=== PATIENT | male | born 1955 | race Caucasian/White ===

== ENCOUNTER 2016-11-14 11:09 | Emergency (ER) | payer OTHER ==
--- NOTE | 2016-11-14 11:18 | EDPHY ---
H & P Time Seen by Provider: 11/14/16 11:17 HPI/ROS: CHIEF COMPLAINT: Intermittent chest pain HISTORY OF PRESENT ILLNESS: The patient presents to the ED for evaluation of intermittent chest pain which has been occurring for the past 2 days. The patient's symptoms occur sporadically and are not precipitated by exertion. He describes a vague substernal discomfort and some sensation of fullness in his throat. The patient did have some paresthesias in his left arm which also improved. The patient was concerned that he was having heart attack which prompted his visit to the ED today. The patient has a history of borderline hypertension which is untreated. The patient denies hyperlipidemia, diabetes, smoking or a positive family medical history. The patient states his last episode of pain began at approximately 8 o'clock this morning. It is essentially resolved. He currently denies any paresthesias involving his left arm. Additionally, the patient denies pleuritic chest pain. He denies asymmetric calf pain or swelling. He has no complaints of fever cough or congestion. REVIEW OF SYSTEMS: A comprehensive 10 point review of systems is otherwise negative aside from elements mentioned in the history of present illness. Source: Patient Exam Limitations: No limitations - Medical/Surgical History PMH: Past medical history: Borderline hypertension - Family History Significant Family History: No pertinent family hx - Social History Smoking Status: Never smoked - Physical Exam Exam: General Appearance: Alert, no distress Eyes: Pupils equal and round no pallor or injection ENT, Mouth: Mucous membranes moist Respiratory: There are no retractions, lungs are clear to auscultation Cardiovascular: Regular rate and rhythm Gastrointestinal: Abdomen is soft and nontender, no masses, bowel sounds normal Neurological: A&O, normal motor function, normal sensory exam, normal cranial nerves Skin: Warm and dry, no rashes Musculoskeletal: Neck is supple nontender Extremities: symmetrical, full range of motion Constitutional: Initial Vital Signs Temperature (C) 36.7 C 11/14/16 11:11 Heart Rate 68 11/14/16 11:11 Respiratory Rate 16 11/14/16 11:11 Blood Pressure 147/104 H 11/14/16 11:11 O2 Sat (%) 97 11/14/16 11:11 O2 Delivery Mode Room Air Allergies/Adverse Reactions: amoxicillin Allergy (Verified 11/14/16 11:22) Home Medications: Medication Instructions Recorded Aspirin EC 81 mg (*) 11/14/16 Multi-Day Vitamins 11/14/16 Medical Decision Making - Diagnostics EKG Interpretation: EKG: Complete interpretation has been separately recorded in the [facility] archive. Summary impression: Sinus rhythm, no ischemic changes Imaging Results: Imaging Impressions Chest X-Ray 11/14/16 11:41 Impression: Negative portable chest ED Course/Re-evaluation: The patient presents to the ED with a 2 day history of atypical chest pain. The patient is currently asymptomatic. His initial EKG is normal. His vital signs and neurologic examination are also within normal limits. The patient is troponin is normal despite 2 days of symptoms. He remained asymptomatic throughout his stay in the emergency department. The patient is low risk for acute coronary syndrome and has no risk factors aside from a reported history of intermittent mild hypertension. Additionally, the patient has no history of exertional chest pain or shortness of breath. There is nothing on his history or physical examination today to suggest pulmonary embolism or DVT. I have told the patient that further workup is indicated with a treadmill stress test. The patient will follow up with Dr. Lorin Shelton from Cardiology. They will contact the patient later today to give him a follow-up appointment for a treadmill stress test. The patient has been instructed that he should return to the ED immediately for worsening chest pain, difficulty breathing or other concerns. Differential Diagnosis: Differential diagnosis considered includes acute coronary syndrome, esophageal spasm, pericarditis, aortic dissection, pulmonary embolism - Data Points Laboratory Results: Laboratory Results 11/14/16 11:15 11/14/16 11:15 11/14/16 11/14/16 11:15 11:15 WBC 4.32 10^3/uL 10^3/uL (3.80-9.50) RBC 4.56 10^6/uL 10^6/uL (4.40-6.38) Hgb 15.3 g/dL g/dL (13.7-17.5) Hct 41.8 % % (40.0-51.0) MCV 91.7 fL fL (81.5-99.8) MCH 33.6 pg pg (27.9-34.1) MCHC 36.6 g/dL g/dL (32.4-36.7) RDW 12.4 % % (11.5-15.2) Plt Count 124 10^3/uL L 10^3/uL (150-400) MPV 10.1 fL fL (8.7-11.7) Neut % (Auto) 54.1 % % (39.3-74.2) Lymph % (Auto) 33.8 % % (15.0-45.0) [place] % (Auto) 10.9 % % (4.5-13.0) Eos % (Auto) 0.5 % L % (0.6-7.6) Baso % (Auto) 0.5 % % (0.3-1.7) Nucleat RBC Rel Count 0.0 % % (0.0-0.2) Absolute Neuts (auto) 2.34 10^3/uL 10^3/uL (1.70-6.50) Absolute Lymphs (auto) 1.46 10^3/uL 10^3/uL (1.00-3.00) Absolute Monos (auto) 0.47 10^3/uL 10^3/uL (0.30-0.80) Absolute Eos (auto) 0.02 10^3/uL L 10^3/uL (0.03-0.40) Absolute Basos (auto) 0.02 10^3/uL 10^3/uL (0.02-0.10) Absolute Nucleated RBC 0.00 10^3/uL 10^3/uL (0-0.01) Immature Gran % 0.2 % % (0.0-1.1) Immature Gran # 0.01 10^3/uL 10^3/uL (0.00-0.10) Sodium 137 mEq/L mEq/L (134-144) Potassium 3.8 mEq/L mEq/L (3.5-5.2) Chloride 100 mEq/L mEq/L (97-110) Carbon Dioxide 25 mEq/l mEq/l (22-31) Anion Gap 12 mEq/L mEq/L (8-16) BUN 10 mg/dL mg/dL (7-23) Creatinine 0.7 mg/dL mg/dL (0.7-1.3) Estimated GFR > 60 Glucose 104 mg/dL H mg/dL (70-100) Calcium 8.9 mg/dL mg/dL (8.5-10.4) Troponin I < 0.012 ng/mL ng/mL (0-0.034) Departure - Departure Disposition: Home, Routine, Self-Care Clinical Impression: Chest pain Condition: Good Instructions: Chest Pain (ED) Additional Instructions: 1. Based upon the testing done in the Emergency Department today we see no evidence of a heart attack. 2. We are unable to fully exclude coronary artery disease based upon the testing available in the Emergency Department. 3. For this reason, we would like you to be seen by cardiology for consideration of additional testing within the next 3 days. 4. Please contact the director business intelligence you have been referred to schedule this appointment as soon as possible. Their offices are typically open from 8:30am- 5pm M-F. 5. Please return to the Emergency Department immediately for any recurrent chest pain, difficulty breathing or other concerns. Referrals: Lorin Shelton MD [Medical Doctor] - As per Instructions
[2016-11-14 11:35] LABS: % IMMATURE GRANULYOCYTES 0.2 % (0.0-1.1); ABSOLUTE IMMATURE GRANULOCYTES 0.01 10^3/uL (0.00-0.10); ADD DIFF? NO; ADD MORPH? NO; ADD SCAN? NO; ATYPICAL LYMPHOCYTE FLAG 30 (0-99); FRAGMENT RBC FLAG 0 (0-99); HEMATOCRIT 41.8 % (40.0-51.0); HEMOGLOBIN 15.3 g/dL (13.7-17.5); LEFT SHIFT FLG 0 (0-99); LIPEMIA HEMOLYSIS FLAG 90 (0-99); MEAN CELL HEMOGLOBIN 33.6 pg (27.9-34.1); MEAN CELL HEMOGLOBIN CONCENTR. 36.6 g/dL (32.4-36.7); MEAN CELL VOLUME 91.7 fL (81.5-99.8); MEAN PLATELET VOLUME 10.1 fL (8.7-11.7); PLATELET CLUMPS FLAG 0 (0-99); PLATELET COUNT 124 10^3/uL (150-400); RED BLOOD CELL COUNT 4.56 10^6/uL (4.40-6.38); RED CELL DISTRIBUTION WIDTH 12.4 % (11.5-15.2)
[2016-11-14 11:49] LABS: ANION GAP 12 mEq/L (8-16); CALCIUM 8.9 mg/dL (8.5-10.4); CARBON DIOXIDE 25 mEq/l (22-31); CHLORIDE 100 mEq/L (97-110); CREATININE 0.7 mg/dL (0.7-1.3); GLOMERULAR FILTRATION RATE > 60; GLUCOSE 104 mg/dL (70-100); POTASSIUM 3.8 mEq/L (3.5-5.2); SODIUM 137 mEq/L (134-144)
[2016-11-14 12:00] LABS: TROPONIN I < 0.012 ng/mL (0-0.034)
--- NOTE | 2016-11-14 12:29 | CPEKG ---
Heart Rate: 67 RR Interval: 896 P-R Interval: 164 QRSD Interval: 94 QT Interval: 408 QTC Interval: 431 P [place]: 48 QRS [place]: -10 T Wave [place]: 4 EKG Severity - ABNORMAL ECG - EKG Impression: SINUS RHYTHM EKG Impression: LEFTWARD AXIS EKG Impression: ST ABNORMALITY SUGGESTIVE OF ISCHEMIA Electronically Signed By: Don Loera 15-Nov-2016 14:32:44
[2016-11-14 13:07] VITALS: BP 126/88; PULSE 64; RESP 14; TEMP 97.7; O2SAT 95
== END 2016-11-14 13:07 | disposition home or self-care (01) ==
LOC: CED 11:09
DX: R07.9 Chest pain, unspecified (principal); Z79.82 Long term (current) use of aspirin
CPT/HCPCS: 71010-PO; 80048-PO; 84484-PO; 85025-PO

== ENCOUNTER 2017-10-03 12:27 | Emergency (ER) | payer OTHER ==
--- NOTE | 2017-10-03 12:39 | CPEKG ---
Heart Rate: 80 RR Interval: 750 P-R Interval: 160 QRSD Interval: 88 QT Interval: 384 QTC Interval: 443 P [place]: 39 QRS [place]: -14 T Wave [place]: 2 EKG Severity - NORMAL ECG - EKG Impression: SINUS RHYTHM Electronically Signed By: Tapan Farmer 03-Oct-2017 15:34:46
[2017-10-03] MEDS ORDERED: ASPIRIN 81 MG CHEWABLE TAB PO ONE (12:41)
[2017-10-03] MEDS ORDERED: NITROGLYCERIN 0.4 MG BTL SL PRN (12:54)
[2017-10-03 12:57] LABS: PLATELET COUNT 123 10^3/uL (150-400)
[2017-10-03] MEDS ORDERED: IOPAMIDOL (ISOVUE 370) 100 ML BTL IV ONE (14:06)
--- NOTE | 2017-10-03 15:20 | EDPHY ---
H & P Stated Complaint: CP Time Seen by Provider: 10/03/17 12:41 HPI/ROS: This patient was sent from his primary care physician's office for further evaluation of chest pain. Patient seen by Dr. Cathy ng, local family practitioner to me initially presented today with his symptoms of chest pain that started at 1:30 a.m. In the morning the day of evaluation describes tightness 5/10 intensity. He stated that the chest tightness persisted but diminished intensity to 2/10-substernal nonradiating. She reports that most the pain is in the epigastric location with some substernal component. He also reports mild right shoulder symptoms are very vague since arriving here. Symptoms improve increase slightly with a deep breath there is no change in the nature of the pain. No other exacerbating factors are noted. The patient arrived by private vehicle for further evaluation of his symptoms. ROS: Constitutional: No recent fevers or chills. No fatigue. HEENT: No URI symptoms or other complaints new Pulmonary: No shortness of breath. No cough. Cardiovascular: No heart palpitations. No lightheadedness. No lower extremity swelling. GI: No lower belly pain. No distension. No nausea or vomiting. Patient does report some GERD symptoms normally recently-belching and slight reflux symptoms at times. : No complaints Skin. No diaphoresis or pallor. Endocrine: No complaints Complete review of symptoms is otherwise negative. Source: Patient Exam Limitations: No limitations - Personal History Current Tetanus Diphtheria and Acellular Pertussis (TDAP): Yes - Medical/Surgical History PMH: Hypercholesterolemia on Crestor Normal treadmill stress test in January, 8 months prior to arrival Hx Asthma: No Hx Chronic Respiratory Disease: No Hx Diabetes: No Hx Cardiac Disease: No Hx Renal Disease: No Hx Cirrhosis: No Hx Alcoholism: No Hx HIV/AIDS: No Hx Splenectomy or Spleen Trauma: No Other PMH: Med hx-none. Surg-ortho - Family History Significant Family History: No pertinent family hx - Social History Smoking Status: Never smoked Alcohol Use: Occasionally Drug Use: None Additional Social History: Patient is an audio recording engineer at [employer] - Physical Exam Exam: Vital signs are normal General Appearance: Pleasant 62-year-old male appears younger than his stated age Alert, no distress. Eyes: Pupils equal and round no pallor or injection. ENT, Mouth: Mucous membranes moist. Respiratory: There are no retractions, lungs are clear to auscultation. Cardiovascular: Regular rate and rhythm. No murmur gallop rub. No JVD. No peripheral edema. No chest wall tenderness Gastrointestinal: Abdomen is soft and nontender, no masses, bowel sounds normal. Neurological: GCS 15 Skin: Warm and dry, no rashes. Musculoskeletal: Neck is supple nontender. Extremities are symmetrical, full range of motion. Psychiatric: Mood and affect normal DIFFERENTIAL DIAGNOSIS: After history and physical exam differential diagnosis was considered for myocardial ischemic disease, GERD, esophageal spasm, musculoskeletal pain, pleurisy, pulmonary embolism, aortic dissection, aortic aneurysm Constitutional: Initial Vital Signs Heart Rate 83 10/03/17 12:42 Respiratory Rate 20 10/03/17 12:42 Blood Pressure 146/94 H 10/03/17 12:42 O2 Sat (%) 95 10/03/17 12:42 O2 Delivery Mode Room Air Allergies/Adverse Reactions: amoxicillin Allergy (Verified 11/14/16 11:22) Home Medications: Medication Instructions Recorded Aspirin EC 81 mg (*) 11/14/16 Multi-Day Vitamins 11/14/16 Pantoprazole Sodium [Protonix 40mg 40 mg PO DAILY #20 tab 10/03/17 (*)] Medical Decision Making - Diagnostics EKG Interpretation: 12 lead EKG performed shortly after arrival reveals sinus rhythm at rate of 80 Imaging Results: Two view chest x-ray: Slightly widened mediastinum by my interpretation- question ectatic aorta verses aortic aneurysm or dissection. Imaging: Discussed imaging studies w/ callisthenics instructor Radiologist (Concerned about the parents the mediastinum the chest x-ray, I discussed this with Dr. Sim who concurs the minus TM appeared somewhat widened and recommended CT angio chest) ED Course/Re-evaluation: IV, aspirin p. O., monitor SL nitroglycerines without change in his discomfort. However, without further intervention the patient's chest discomfort gradually improved. He declined Maalox here. Labs: CBC is normal with exception of mild thrombocytopenia at 123K troponin normal, D-dimer normal, basic metabolic panel normal Due to the appearance of widened mediastinum on the chest x-ray I discussed the chest radiographs with Dr. Sim, radiologist who recommended CT angio chest for further evaluation to rule out aortic pathology. The CT angio revealed no evidence of her dissection or aneurysm. Rather, the patient has tortuous aorta that caused the widened appearance. Discussion: Patient with chest pain of unclear etiology that improved without significant intervention. I discussed this case with patient's primary care physician who both feel that the patient likely has GERD causing his symptoms. He had an normal treadmill test over the summer, normal EKG today normal troponin and CT angio chest that ruled out any significant aortic pathology. Similarly a negative D-dimer , combined with imaging that effectively rules out pulmonary embolism. I counseled the patient regarding his studies. He will plan to start him on proton pump inhibitor with follow up with his primary care physician and with Cardiology for any ongoing symptoms he understands need to return emergency department should she develop any worsening of symptoms despite treatment plan. - Data Points Laboratory Results: Laboratory Results 10/03/17 12:45 10/03/17 12:45 Medications Given: Discontinued Medications Aspirin (Aspirin) 324 mg PO EDNOW ONE Stop: 10/03/17 12:42 Last Admin: 10/03/17 13:02 Dose: 324 mg Nitroglycerin (Nitrostat) 0.4 mg SL Q5M PRN PRN Reason: Chest Pain Last Admin: 10/03/17 13:03 Dose: 0.4 mg Departure - Departure Disposition: Home, Routine, Self-Care Clinical Impression: Chest pain Condition: Good Instructions: Chest Pain (ED), Gastroesophageal Reflux Disease (ED) Additional Instructions: Diagnosis: 1. Chest pain 2. GERD Plan: Start Protonix or Prilosec 40 mg a day-acid eunice. [place] diet until symptoms improve Follow up with primary care physician for recheck sometime the next 3-7 days Return emergency department for any significant worsening despite the treatment plan. Follow up with Cardiology for further evaluation of any ongoing symptoms. Referrals: RODOLFO MCGUIRE [Primary Care Provider] - As per Instructions Loirn Shelton MD [Medical Doctor] - As per Instructions Prescriptions: Pantoprazole Sodium [Protonix 40mg (*)] 40 mg PO DAILY #20 tab
[2017-10-03 15:22] VITALS: BP 140/100
== END 2017-10-03 15:10 | disposition home or self-care (01) ==
LOC: CED 12:27
DX: R07.9 Chest pain, unspecified (principal); Z79.82 Long term (current) use of aspirin
CPT/HCPCS: 71046-PO; 71275-PO; 80048-PO; 84484-PO; Q9967